=== PATIENT | female | born 1965 | race Caucasian/White ===

== ENCOUNTER → 2024-02-25 15:00 | Outpatient (REF) | payer OTHER, SELFPAY | LOC: HWRAD 15:00 | PROVIDERS: ATTENDING PHYSICIAN Student in an Organized Health Care Education/Training Program | DX: N95.1 Menopausal and female climacteric states (principal) | CPT/HCPCS: 77080 ==

== ENCOUNTER → 2024-03-08 14:30 | Outpatient (REF) | payer OTHER, SELFPAY | LOC: RCS 14:30 | PROVIDERS: ATTENDING PHYSICIAN Student in an Organized Health Care Education/Training Program | DX: R60.0 Localized edema (principal) | CPT/HCPCS: 93306 ==